=== PATIENT | male | born 1960 | race Caucasian/White ===

== ENCOUNTER 2024-03-05 08:23 | Outpatient (CLI) | payer OTHER, SELFPAY | END 2024-03-05 08:24 | disposition home or self-care (01) | PROVIDERS: PCP Family Medicine; Visit Provider Registered Nurse | DX: Z00.00 Encounter for general adult medical examination without abnormal findings (principal); E78.5 Hyperlipidemia, unspecified; I10 Essential (primary) hypertension; E11.9 Type 2 diabetes mellitus without complications; Z12.5 Encounter for screening for malignant neoplasm of prostate | CPT/HCPCS: 80053; 80061; G0103 ==

== ENCOUNTER 2024-04-28 15:36 | Outpatient (CLI) | payer OTHER, SELFPAY | END 2024-04-28 15:37 | disposition home or self-care (01) | LOC: NFLDREF 04-29 10:52 | PROVIDERS: PCP Registered Nurse; Referring Provider Registered Nurse; Visit Provider Registered Nurse | DX: M25.551 Pain in right hip (principal) | CPT/HCPCS: 86140 ==

== ENCOUNTER 2024-05-18 18:43 | Outpatient (CLI) | payer OTHER, SELFPAY ==
--- NOTE | 2024-05-18 19:00 | CRLHL7_ITS ---
For Patients: As a result of the Century Cures Act, medical imaging exams and procedure reports are released immediately into your electronic medical record. You may view this report before your referring provider. If you have questions, please contact your health care provider. Indication: Radiculopathy with low back pain. Technique: T2, T1, and STIR sagittal as well as T1 and T2 axial sequences were obtained. No IV contrast. Comparison: None available. Findings: Five lumbar morphology vertebrae are assumed, with partial lumbarization of S1 and a relatively well-formed S1-S2 disc space. There is left convex curvature in the lower lumbar region. Alignment in the lateral projection is near anatomic. No evidence for recent fracture, worrisome bone lesion or pars defect. There is mild loss of anterior vertebral body height at the L1 level. No high grade central canal stenosis. The conus and cauda equina are unremarkable, with the tip of the cord at the L1 level. No paraspinal pathology is identified. T12-L1: Mild disc degeneration. The foramina are patent. L1-2: Mild facet degenerative changes. The disc is negative. The foramina are patent. L2-3: Mild disc and moderate facet degenerative changes with low-grade foraminal narrowing. L3-4: Moderately severe facet osteoarthritis. Moderate disc degeneration. Moderate narrowing of the neural foramina. L4-5: Moderate-sized foraminal/extraforaminal disc extrusion on the right, impinging on the right L4 root as it exits the foramen. Moderate disc degeneration. Severe left and moderate right facet osteoarthritis. L5-S1: Moderately severe facet osteoarthritis. Mild disc degeneration. Moderate foraminal narrowing. Impression: 1. Transitional lumbosacral level. Prior to any attempted intervention, careful plain film correlation would be essential to remove any level ambiguity. 2. At L4-5 there is a moderate-sized foraminal/extraforaminal disc herniation on the right, impinging on the right L4 root. 3. Prominent facet osteoarthritis at lower lumbar levels. 4. No central canal stenosis. No evidence for fracture. Dictated by Ramsey Calle MD @ 05/19/2024 4:41:56 PM (Electronically Signed)
== END 2024-05-18 18:44 | disposition home or self-care (01) ==
LOC: MRI 18:44
PROVIDERS: PCP Registered Nurse; Visit Provider Family Medicine
DX: M54.16 Radiculopathy, lumbar region (principal); M54.50 Low back pain, unspecified; M51.26 Other intervertebral disc displacement, lumbar region; M47.896 Other spondylosis, lumbar region
CPT/HCPCS: 72148

== ENCOUNTER 2024-06-08 10:58 | Outpatient (CLI) | payer OTHER, SELFPAY | END 2024-06-08 10:59 | disposition home or self-care (01) | LOC: INJ CL 10:59 | PROVIDERS: PCP Registered Nurse; Visit Provider Family Medicine | DX: M54.16 Radiculopathy, lumbar region (principal); M51.26 Other intervertebral disc displacement, lumbar region | CPT/HCPCS: 64483; J1100; Q9966 ==

== ENCOUNTER 2024-07-05 16:10 | Outpatient (CLI) | payer OTHER, SELFPAY ==
--- OUTSIDE RECORDS SUMMARY | 2024-07-05 16:20 | XMS_ITS | Clinical Summary ---
Author Organization [facility] Address [address] [place] [address] Care Team Providers Care Field Contact Technician Name Role Phone Sterling Valdez MD Primary Care Provider [phone] Source Comments You are receiving this document as you are listed as the primary care provider,follow-up provider, or the patient has been referred to you for consultation.This is in compliance with the Medicare and[facility] EHR Incentive Program,which states Providers who transition their patient to another setting of careor provider of care or refers their patient to another provider of care shouldprovide summary care record for each transition of care or referral. [employer] Allergies No known active allergies Medications Medication Sig Dispensed Refills Start Date End Date Status Aspirin Buf,OkEnvo-KhQktp-DvR , 81 MG TABS Take 1 Tablet by mouth. Active amLODIPine (NORVASC) 10 MG tablet Take 1 tablet by mouth once daily 90 Tablet 3 03/06/2023 Active metFORMIN XR (GLUCOPHAGE XR) 500 MG 24 hour release tablet TAKE 1 TABLET BY MOUTH TWICE DAILY WITH MEALS 180 Tablet 3 03/06/2023 Active atorvastatin (LIPITOR) 40 MG tablet Take 1 tablet by mouth once daily 90 Tablet 3 03/06/2023 Active Active Problems Problem Noted Date Diagnosed Date Adenomatous polyp of colon 01/09/2021 Essential hypertension 11/08/2020 Type 2 diabetes mellitus wit hout complication, without long-term current use of insulin 11/08/2020 Hyperlipidemia 11/08/2020 Sleep apnea 11/08/2020 Immunizations Name Administration Dates Next Due Flu Vac (3+ yrs) 04/28/2012 Flu Vac Preserv Free (3+yrs) 06/04/2013 Flublok (RIV4) 04/27/2020,06/29/2019,06/02/2018 Influenza (Flucelvax), Prese rv Free QIV 05/01/2023 Influenza (Fluzone 0.25, 6-35 mos) 05/06/2014 Influenza IIV4 (Quadrivalent ) 0.5mL (68966) 05/31/2022,05/21/2021,06/18/2017, 016,05/09/2014 Moderna Monovalent 12+ 12/29/2021,10/06/2020, Moderna Monovalent Booster 12+ 06/27/2021 PCV20 (Dpmxdej10) 01/17/2022 PPSV23 (Pneumovax) 06/18/2017 Pfizer Bivalent 12+ 05/31/2022 Td (7+ yrs) 01/09/2011 Tdap 05/31/2022, 2,01/24/2012, 011 Zoster RZV (Shingrix) 01/17/2022,11/08/2020 Social History Tobacco Use Types Packs/Day Years Used Date Smoking Tobacco: Every Day Cigarettes 0.5 44.9 Started: 1979 Smokeless Tobacco: Never Tobacco Cessation:Ready to Q uit: Not Asked; Counseling Given: Not Answered Alcohol Use Standard Drinks/Week Comments Not Currently 0 (1 standard drink = 0.6 oz pur e alcohol) PHQ-2 Answer Date Recorded PHQ-2 Score 0 01/17/2022 Sex and Gender Information Value Date Recorded Sex Assigned at Not on file Gender Identity Not on file Sexual Orientation Not on file Last Filed Vital Signs Vital Sign Reading Time Taken Comments Blood Pressure 135/78 01/17/2022 4:14 PM CDT Pulse 69 05/15/2022 1:51 PM CDT Temperature 36.7 C (98 F) 01/17/2022 4:14 PM CDT Respiratory Rate 16 01/17/2022 4:14 PM CDT Oxygen Saturation 96% 01/17/2022 4:14 PM CDT Inhaled Oxygen Concentration - - Weight 102.1 kg (225 lb) 05/15/2022 1:09 PM CDT Height 177.8 cm (5' 10) 05/15/2022 1:09 PM CDT Body Mass Index 32.28 05/15/2022 1:09 PM CDT Plan of Treatment Health Maintenance Due Date Last Done Comments Adult Preventive Visit 01/17/2023 01/17/2022, 2020 Diabetes: Foot Exam 01/17/2023 01/17/2022 Diabetes: Eye Exam 02/21/2023 02/21/2022, 02/21/2022 Diabetes: HGBA1C 09/13/2023 03/13/2023, 04/2022, 11/10/2020, Additional history exists Colonoscopy 01/06/2024 01/05/2021 Diabetes: Creatinine 03/13/2024 03/13/2023, 01/17/2022, 11/10/2020 Diabetes: Urine Microalbumin 03/13/2024 03/13/2023, 01/17/2022 PSA Screening Discussion 03/13/2024 03/13/2023, 0409/2020 COVID-19 Vaccine ( season) 2024 05/31/2022, 12/29/2021, 06/27/2021, Additional history exists Influenza (#1) 2024 05/01/2023, 05/12, 05/21/2021, Additional history exists Diabetes: Lipid Panel 03/13/2028 03/13/2023, 021 DTaP/Tdap/Td (6 - Tdap) 05/31/2032 05/31/20, 04/28/2012, 01/24/2012, Additional history exists RSV (1 - 1-dose 75+ series) 2035 HIV Screening (Preventive Services) Completed 01/17/2022 Hep C Screening (Preventive Services) Completed 01/17/2022 Pneumococcal Completed 01/17/2022, 06/18/2017 Zoster/Shingles Completed 01/17/2022, 11/08/2020 Cholesterol Discontinued 03/13/2023, 11/10/2020 HepA Aged Out No longer eligi ble based on patient's age to complete this topic HepB Aged Out No longer eligi ble based on patient's age to complete this topic Hib Aged Out No longer eligi ble based on patient's age to complete this topic IPV (Polio) Aged Out No longer eligi ble based on patient's age to complete this topic Infant RSV Aged Out No longer eligi ble based on patient's age to complete this topic MCV4 Aged Out No longer eligi ble based on patient's age to complete this topic Procedures Procedure Name Priority Date/Time Associated Diagnosis Comments PROSTATIC SPECIFIC ANTIGEN(SCREEN) Routine 03/13/2023 7:22 AM CDT Screening for prostate cancer COMPREHENSIVE METABOLIC PANEL Routine 03/13/2023 7:22 AM CDT Essential hypertension (HRC) Hyperlipidemia, unspecified hyperlipidemia type (HRC) Type 2 diabetes mellitus without complication, without long-term current use of insulin (HRC) ALBUMIN/CREAT RATIO Routine 03/13/2023 7 :22 AM CDT Type 2 diabetes mellitus without complication, without long-term current use of insulin (HRC) HGB A1C Routine 03/13/2023 7:22 AM CDT Type 2 diabetes mellitus without complication, without long-term current use of insulin (HRC) LIPID PANEL & DIRECT LDL (IF NEEDED) Routine 03/13/2023 7:22 AM CDT Hyperlipidemia, unspecified hyperlipidemia type (HRC) HIV 1/2 AG/AB 4TH GEN Routine 01/17/2022 5:24 PM CDT Screening for HIV (human immunodeficiency virus) HEPATITIS C ANTIBODY, WITH REFLEX Routine 01/17/2022 5:24 PM CDT Need for hepatitis C screening test COLONOSCOPY Routine 01/05/2021 8:21 AM CDT Screen for colon cancer from Last 3 Months or Most Recently Relevant to Health Maintenance Results * (ABNORMAL) Lipid Panel and Direct LDL(If Needed) (03/13/2023 7:22 AM CDT) Pathologist [facility] Cholesterol 143 0 - 199 mg/dL 03/13/2023 2:11 PM CDT [facility] Triglyceride 101 <=149 mg/dL 03/13/2023 2:11 PM CDT [facility] HDL Cholesterol 32(L) >=40 mg/dL 03/13/2023 2:11 PM CDT [facility] LDL, Calculated 91 <130 mg/dL 03/13/2023 2:11 PM CDT [facility] Non HDL Chol, Calculated 111 <=159 mg/dL 03/13/2023 2:11 PM CDT [facility] Cholesterol/HDL Ratio 4.5 03/13/2023 2:11 PM T [facility] Hours Fasting 12 03/13/2023 2:11 PM CDT [facility] Blood Venipuncture / Unknown 03/13/2023 7:22 AM CDT 03/13/2023 7:22 AM CDT Kristie Moreno PA-C LAB_1 [facility] [address] [address] [phone] [facility] [address] [place] [phone], [facility] [phone] * (ABNORMAL) Comp Metabolic Panel (03/13/2023 7:22 AM CDT) Sodium 142 136 - 145 mmol/L 03/13/2023 2:11 PM CDT [facility] Potassium 4.8 3.5 - 5.1 mmol/L 03/13/2023 2:11 PM T [facility] Chloride 107 98 - 109 mmol/L 03/13/2023 2:11 PM CDT [facility] CO2 28 20 - 29 mmol/L 03/13/2023 2:11 PM T [facility] Anion Gap 7 7 - 16 mmol/L 03/13/2023 2:11 PM T [facility] Calcium 9.5 8.4 - 10.4 mg/dL 03/13/2023 2:11 PM T [facility] BUN 15 7 - 26 mg/dL 03/13/2023 2:11 PM T [facility] Creatinine 0.91 0.73 - 1.18 mg/dL 03/13/2023 2:11 PM T [facility] Alkaline Phosphatase 80 40 - 150 U/L 03/13/2023 2:11 PM T [facility] AST (SGOT) 17 10 - 40 U/L 03/13/2023 2:11 PM CDT [facility] ALT (SGPT) 17 <=55 U/L 03/13/2023 2:11 PM T [facility] Bilirubin, Total 0.6 0.2 - 1.2 mg/dL 03/13/2023 2:11 PM T [facility] Protein, Total 7.2 6.4 - 8.3 g/dL 03/13/2023 2:11 PM T [facility] Albumin 4.0 3.5 - 5.0 g/dL 03/13/2023 2:11 PM T [facility] Glucose 101(H) 70 - 100 mg/dL 03/13/2023 2:11 PM T [facility] Comment:The given reference range is for the fasting state. Non-fasting reference range for glucose is 70 - 180 mg/dL. Hours Fasting 12 03/13/2023 2:11 PM T [facility] GFR, Estimated >60 >60 mL/min/1. 73m2 03/13/2023 2:11 PM [facility] Blood Venipuncture / Unknown 03/13/2023 7:22 AM CDT 03/13/2023 7:22 AM CDT Kristie Moreno PA-C LAB_1 [facility] [address] [address], [facility] [phone] [facility] [address] [place] [phone], [facility] [phone] * Prostatic Specific Antigen (Screen) (03/13/2023 7:22 AM CDT) Prostatic Specific Antigen 2.7 0.0 - 4.0 ng/mL 03/13/2023 2:28 PM CDT [facility] Blood Venipuncture / Unknown 03/13/2023 7:22 AM CDT 03/13/2023 7:22 AM CDT Narrative [facility] - 03/13/2023 2:28 PM CDT The Salazar PSA Chemiluminescent immunoassay is used. Results obtained with different test methods or kits cannot be used interchangeably. Kristie Moreno PA-C LAB_1 Performing Organization Address [facility] de Phone Number [facility] [address] [phone] * Albumin/Creatinine Ratio,Random Urine (03/13/2023 7:22 AM CDT) Albumin/Creati nine Ratio, Urine, Random 10 <30 mg/g 03/13/2023 2:31 PM CDT [facility] Albumin, Urine, Random 2.1 mg/L 03/13/2023 2:31 PM CDT [facility] Creatinine, Urine, Random 21 >20 mg/dL mg/dL 03/13/2023 2:31 PM CDT [facility] Urine Non-blood Collection / Unknown 03/13/2023 7:22 AM CDT 03/13/2023 7:22 AM CDT Kristie Moreno PA-C LAB_1 Performing Organization Address [facility] de Phone Number [facility] [address] [place] [address] * (ABNORMAL) Hgb A1C (03/13/2023 7:22 AM CDT) Hemoglobin A1C 5.7(H) <=5.6 % 03/13/2023 2:37 PM CDT [facility] Estimated Average Glucose (Calc) 117 < 117 mg/dL 03/13/2023 2:37 PM T [facility] Comment:Estimated average gl ucose (eAG) converts A1c into glucose units (mg/dL) and estimates average glucose over the past approximately 3 months. The eAG reference interval (<117 mg/dL) corresponds to an A1c of <5.7%. Blood Venipuncture / Unknown 03/13/2023 7:22 AM CDT 03/13/2023 7:22 AM CDT Narrative [facility] - 03/13/2023 2:37 PM CDT For patients not previously diagnosed with diabetes: 5.7-6.4%: Increased risk for diabetes 6.5% and greater: Diagnostic for diabetes For patients diagnosed with diabetes: <8.0%: Goal of therapy for ages 18-75 Clinicians may recommend a higher or lower goal for specific individuals. Kristie Moreno PA-C LAB_1 Performing Organization Address [facility] Co de Phone Number [facility] [address] [place] [address], [facility] [phone] * HIV 1/2 Ag/Ab 4th Generation (01/17/2022 5:24 PM CDT) HIV 1/2 Antigen/Anti body (4th generation) Negative (Non Reactive) Negative (Non Reactive) 01/17/2022 10:04 PM CDT [facility] Comment:HIV-1 p24 Antigen an d HIV-1/HIV-2 Antibody not detected Blood Venipuncture / Unknown 01/17/2022 5:24 PM CDT 01/17/2022 5:24 PM CDT Jose Miguel Becker MD LAB_1 Performing Organization Address [facility] Co de Phone Number [facility] [address] [place] [address], [facility] [phone] * Hepatitis C Antibody, with Reflex (01/17/2022 5:24 PM CDT) Hepatitis C Antibody Negative (Non Reactive) Negative (Non Reactive) 01/17/2022 10:04 PM CDT [facility] Comment:Antibodies to HCV no t detected. Does not exclude the possiblity of exposure to HCV. Blood Venipuncture / Unknown 01/17/2022 5:24 PM CDT 01/17/2022 5:24 PM CDT Jose Miguel Becker MD LAB_1 [facility] [address] [phone] * COLONOSCOPY [[id number]] (01/05/2021 8:21 AM CDT) 01/05/2021 8:21 AM CDT Narrative [facility] - 01/05/2021 8:47 AM CDT Instrument Name: [id number] Indications: High risk colon cancer surveillance: Personal history of colonic polyps Providers: Ayanna Franks MD, Kathryn Gonzalez LPN, Hannah Antunez RN Patient Profile: 60 y/o M here for 5 year follow up, had a couple of polyps last time. No FH of colon cancer. Referring MD: Sterling Valdez Medicines: Midazolam 3 mg IV, Fentanyl 100 micrograms IV Complications: No immediate complications. Procedure: Pre-Anesthesia Assessment: - Prior to the procedure, a History and Physical was performed, and patient medications and allergies were reviewed. The patient is competent. The risks and benefits of the procedure and the sedation options and risks were discussed with the patient. All questions were answered and informed consent was obtained. Patient identification and proposed procedure were verified by the physician in the procedure room. Mental Status Examination: alert and oriented. Airway Examination: normal oropharyngeal airway and neck mobility. Respiratory Examination: clear to auscultation. CV Examination: normal. Prophylactic Antibiotics: The patient does not require prophylactic antibiotics. Prior Anticoagulants: The patient has taken no previous anticoagulant or antiplatelet agents. ASA Grade Assessment: II - A patient with mild systemic disease. After reviewing the risks and benefits, the patient was deemed in satisfactory condition to undergo the procedure. The anesthesia plan was to use moderate sedation / analgesia (conscious sedation). Immediately prior to administration of medications, the patient was re-assessed for adequacy to receive sedatives. The heart rate, respiratory rate, oxygen saturations, blood pressure, adequacy of pulmonary ventilation, and response to care were monitored throughout the procedure. The physical status of the patient was re-assessed after the procedure. - With any procedure there is a small but inherent risk of acquiring infection including, but not limited to, the novel coronavirus (COVID-19). After I obtained informed consent, the scope was passed under direct vision. Prior to sedation, patient identity and procedure was reverified. Throughout the procedure, the patient's blood pressure, pulse, and oxygen saturations were monitored continuously. The [id number] was introduced through the anus and advanced to the terminal ileum, with identification of the appendiceal orifice and IC valve. The colonoscopy was performed without difficulty. The patient tolerated the procedure well. The quality of the bowel preparation was excellent. Findings: Hemorrhoids were found on perianal exam. Multiple small and large-mouthed diverticula were found in the sigmoid colon. A 5 mm polyp was found in the descending colon. The polyp was sessile. The polyp was removed with a cold snare. Resection and retrieval were complete. Non-bleeding internal hemorrhoids were found during retroflexion. The hemorrhoids were moderate. The terminal ileum appeared normal. Moderate Sedation: Moderate (conscious) sedation was personally administered by the endoscopist. The following parameters were monitored: oxygen saturation, heart rate, blood pressure, and response to care. Total physician intraservice time was 13 minutes. Impression: - Hemorrhoids found on perianal exam. - Diverticulosis in the sigmoid colon. - One 5 mm polyp in the descending colon, removed with a cold snare. Resected and retrieved. - Non-bleeding internal hemorrhoids. - The examined portion of the ileum was normal. Recommendation: - Repeat colonoscopy in 7 years for surveillance. Procedure Code(s): --- Professional --- 45081, PT, Colonoscopy, flexible; with removal of tumor(s), polyp(s), or other lesion(s) by snare technique [id number], PT, Moderate sedation services provided by the same physician or other qualified health menagerie caretaker performing a gastrointestinal endoscopic service that sedation supports, requiring the presence of an independent trained observer to assist in the monitoring of the patient's level of consciousness and physiological status; initial 15 minutes of intra-service time; patient age 5 years or older (additional time may be reported with 43066, as appropriate) Diagnosis Code(s): --- Professional --- Z12.11, Encounter for screening for malignant neoplasm of colon Z86.010, Personal history of colonic polyps K64.8, Other hemorrhoids K63.5, Polyp of colon K57.30, Diverticulosis of large intestine without perforation or abscess without bleeding CPT copyright 2019 [employer]. All rights reserved. The codes documented in this report are preliminary and upon hotel maintenance technician review may be revised to meet current compliance requirements. Attending Participation: MD Ayanna Peterson MD 01/05/2021 8:46:51 AM This report has been signed electronically. Number of Addenda: 0 Note Initiated On: 01/05/2021 8:21 AM Procedure Note Ayanna Franks MD - 01/05/2021 Instrument Name: [id number] Indications: High risk colon cancer surveillance: Personal history of colonic polyps Providers: Ayanna Franks MD, Kathryn Gonzalez LPN, Hannah Antunez RN Patient Profile: 60 y/o M here for 5 year follow up, had a couple of polyps last time. No FH of colon cancer. Referring MD: Sterling Valdez Medicines: Midazolam 3 mg IV, Fentanyl 100 micrograms IV Complications: No immediate complications. Procedure: Pre-Anesthesia Assessment: - Prior to the procedure, a History and Physical was performed, and patient medications and allergies were reviewed. The patient is competent. The risks and benefits of the procedure and the sedation options and risks were discussed with the patient. All questions were answered and informed consent was obtained. Patient identification and proposed procedure were verified by the physician in the procedure room. Mental Status Examination: alert and oriented. Airway Examination: normal oropharyngeal airway and neck mobility. Respiratory Examination: clear to auscultation. CV Examination: normal. Prophylactic Antibiotics: The patient does not require prophylactic antibiotics. Prior Anticoagulants: The patient has taken no previous anticoagulant or antiplatelet agents. ASA Grade Assessment: II - A patient with mild systemic disease. After reviewing the risks and benefits, the patient was deemed in satisfactory condition to undergo the procedure. The anesthesia plan was to use moderate sedation / analgesia (conscious sedation). Immediately prior to administration of medications, the patient was re-assessed for adequacy to receive sedatives. The heart rate, respiratory rate, oxygen saturations, blood pressure, adequacy of pulmonary ventilation, and response to care were monitored throughout the procedure. The physical status of the patient was re-assessed after the procedure. - With any procedure there is a small but inherent risk of acquiring infection including, but not limited to, the novel coronavirus (COVID-19). After I obtained informed consent, the scope was passed under direct vision. Prior to sedation, patient identity and procedure was reverified. Throughout the procedure, the patient's blood pressure, pulse, and oxygen saturations were monitored continuously. The [id number] was introduced through the anus and advanced to the terminal ileum, with identification of the appendiceal orifice and IC valve. The colonoscopy was performed without difficulty. The patient tolerated the procedure well. The quality of the bowel preparation was excellent. Findings: Hemorrhoids were found on perianal exam. Multiple small and large-mouthed diverticula were found in the sigmoid colon. A 5 mm polyp was found in the descending colon. The polyp was sessile. The polyp was removed with a cold snare. Resection and retrieval were complete. Non-bleeding internal hemorrhoids were found during retroflexion. The hemorrhoids were moderate. The terminal ileum appeared normal. Moderate Sedation: Moderate (conscious) sedation was personally administered by the endoscopist. The following parameters were monitored: oxygen saturation, heart rate, blood pressure, and response to care. Total physician intraservice time was 13 minutes. Impression: - Hemorrhoids found on perianal exam. - Diverticulosis in the sigmoid colon. - One 5 mm polyp in the descending colon, removed with a cold snare. Resected and retrieved. - Non-bleeding internal hemorrhoids. - The examined portion of the ileum was normal. Recommendation: - Repeat colonoscopy in 7 years for surveillance. Procedure Code(s): --- Professional --- 50088, PT, Colonoscopy, flexible; with removal of tumor(s), polyp(s), or other lesion(s) by snare technique [id number], PT, Moderate sedation services provided by the same physician or other qualified health menagerie caretaker performing a gastrointestinal endoscopic service that sedation supports, requiring the presence of an independent trained observer to assist in the monitoring of the patient's level of consciousness and physiological status; initial 15 minutes of intra-service time; patient age 5 years or older (additional time may be reported with 43316, as appropriate) Diagnosis Code(s): --- Professional --- Z12.11, Encounter for screening for malignant neoplasm of colon Z86.010, Personal history of colonic polyps K64.8, Other hemorrhoids K63.5, Polyp of colon K57.30, Diverticulosis of large intestine without perforation or abscess without bleeding CPT copyright 2019 [employer]. All rights reserved. The codes documented in this report are preliminary and upon hotel maintenance technician review may be revised to meet current compliance requirements. Attending Participation: MD Ayanna Peterson MD 01/05/2021 8:46:51 AM This report has been signed electronically. Number of Addenda: 0 Note Initiated On: 01/05/2021 8:21 AM Ayanna Franks MD DIGESTIVE CARE Performing Organization Address City/State/[facility] Co de Phone Number [facility] [place], [place] from Last 3 Months or Most Recently Relevant to Health Maintenance Care Teams Field Contact Technician Relationship Specialty Start Date End Date Sterling Valdez MD [address] [facility] [address] [place] [address] PCP - General Family Practice 11/09/20
--- OUTSIDE RECORDS SUMMARY | 2024-07-05 16:20 | XMS_ITS | Clinical Summary ---
Author Organization [facility] Address [place], [place] [address] Care Team Providers Care Undercollar Baster Name Role Phone Pcp, No Primary Care Provider Unavailabl e Allergies Active Allergy Reactions Criticality Noted Date Comments Heparin Analogues 03/13/2011 Father of complications Medications Medication Sig Dispensed Refills Start Date End Date Status acetaminophen SR (TYLENOL ARTHRITIS PAIN) 650 mg Extended-Release tabletIndications: Tendinitis of right shoulder Take 1 tablet by mouth every 8 hours if needed. Max acetaminophen dose: 4000mg in 24 hrs. 60 tablet 1 12/02/2017 Active atorvastatin (LIPITOR) 40 mg tablet Take 40 mg by mouth once daily. 04/08/2018 Active amLODIPine (NORVASC) 10 mg tablet Take 10 mg by mouth once daily. 07/13/2018 Active chlorthalidone (HYGROTON) 25 mg tablet Take 12.5 mg by mouth once daily. 06/02/2018 Active aspirin (ECOTRIN) 81 mg enteric coated tablet Take 1 tablet by mouth once daily with a meal. 0 08/24/2018 Active Active Problems Problem Noted Date Diagnosed Date Hypertension 03/13/2011 Encounters Date Type Department Care Team Description 06/08/2024 11:40 AM CDT Office Visit [facility] [address] [place] [id number] Alex Ash MD Procedure (Right L4-5 TFESI) 06/08/2024 Travel 06/04/2024 Telephone [facility] [address] [place] [address] Pcp, No Questions (Paperwork ) 05/31/2024 Telephone [facility] [address] [place], [place] [phone] Alex Ash MD Appointment (For [facility] ) 05/31/2024 Transcribe Orders [facility] [address] [place] [address] Alex Ash MD from Last 3 Months Immunizations Name Administration Dates Next Due Influenza, IIV4 06/18/2017,05/15/2016 Td (Age >=7 Years) 01/09/2011 Tdap 04/28/2012,01/24/2012,10/04/2010 Social History Tobacco Use Types Packs/Day Years Used Date Smoking Tobacco: Every Day Cigarettes Smokeless Tobacco: Never Tobacco Cessation:Ready to Q uit: Not Asked; Counseling Given: Not Answered Alcohol Use Standard Drinks/Week Comments Yes 0 (1 standard drink = 0.6 oz pur e alcohol) Occassionally PHQ-2 Answer Date Recorded PHQ-2 Score 0 10/12/2018 Sex and Gender Information Value Date Recorded Sex Assigned at Not on file Gender Identity Not on file Sexual Orientation Not on file Obstetrics History Last Filed Vital Signs Vital Sign Reading Time Taken Comments Blood Pressure 134/82 08/27/2022 1:00 PM LEAD DIE MOLDER Pulse 70 08/27/2022 1:00 PM LEAD DIE MOLDER Temperature 36.7 C (98.1 F) 08/27/2022 10:10 AM LEAD DIE MOLDER Respiratory Rate 20 08/27/2022 10:10 AM LEAD DIE MOLDER Oxygen Saturation 99% 08/27/2022 1:00 PM LEAD DIE MOLDER Inhaled Oxygen Concentration - - Weight 104.3 kg (230 lb) 08/27/2022 10:10 AM LEAD DIE MOLDER Height 177.8 cm (5' 10) 08/27/2022 10:10 AM LEAD DIE MOLDER Body Mass Index 33 08/27/2022 10:10 AM LEAD DIE MOLDER Plan of Treatment Upcoming Encounters Date Type Department Care Team (Latest Contact Info) Description 07/27/2024 7:15 AM LEAD DIE MOLDER Hospital Encounter [facility] [address] [place], [place] [id number] Kwaku Campoverde MD [facility] [address] [facility] [address] [place] [address] 07/27/2024 7:15 AM LEAD DIE MOLDER - 07/27/2024 9:35 AM LEAD DIE MOLDER Surgery [facility] [address] [place] [address] Kwaku Campoverde MD [address] [facility] [address] [place] [address] Decompression - Transfacet/Transfora wil L4 to: L5 Right Scheduled Procedures Name Priority Associated Diagnoses Date/Ti me DECOMPRESSION SPINE LEVEL 01 Tier 4 HNP w/ Radiculopathy, 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 07/27/2024 7:15 AM LEAD DIE MOLDER Health Maintenance Due Date Last Done Comments Pneumococcal series for age 6-64 (1 of 2 - PCV) 1966 HIV for age 15-65 1975 Hepatitis C screening for ag e 18-79 1978 Colonoscopy through age 75 2005 Lipids for age 45-75 2005 Zoster (shingles) series for age 50+ (1 of 2) 2010 Depression screening for age 12+ 11/03/2018 11/04/19 18, 11/03/2017 BMI (ht and wt on same day) for age 18+ 01/13/2019 01/13/2018, 11/03/2017, 01/06/2017 Tetanus booster 04/28/2022 04/28/2012, 01/09, 01/09/2011, Additional history exists COVID-19 vaccine series (2023- season) 2024 05/31/2022, 12/29/2021, 06/27/2021, Additional history exists Influenza for age 50-64 04/11/2024 06/18/2017, 05/15 Tdap Completed 04/28/2012, 01/09, 10/04/2010 Procedures Procedure Name Priority Date/Time Associated Diagnosis Comments AMB EPIDURAL STEROID INJECTION Routine 06/08/2024 12:00 AM CDT Lumbar radiculopathy from Last 3 Months Results * AMB EPIDURAL STEROID INJECTION (06/08/2024 12:00 AM CDT) Alex Ash MD NEUROLOGY ORD from Last 3 Months Care Teams Undercollar Baster Relationship Specialty Start Date End Date Pcp, No . PCP - General 01/23/06
--- OUTSIDE RECORDS SUMMARY | 2024-07-05 16:20 | XMS_ITS | Encounter Summary ---
Author Organization [facility] Address [address] [place] [address] Care Team Providers Care Quality Associate Name Role Phone Sterling Valdez MD Primary Care Provider [phone] Reason for Visit * Reason Comments Outside Records on File Encounter Details Date Type Department Care Team (Late st Contact Info) Description 03/01/[address] [address] Sterling Valdez MD [facility] [address] [place] [address] Outside Records on File Social History Tobacco Use Types Packs/Day Years Used Date Smoking Tobacco: Every Day Cigarettes 0.5 44.9 Started: 1979 Smokeless Tobacco: Never Alcohol Use Standard Drinks/Week Comments Not Currently 0 (1 standard drink = 0.6 oz pur e alcohol) PHQ-2 Answer Date Recorded PHQ-2 Score 0 01/17/2022 Sex and Gender Information Value Date Recorded Sex Assigned at Not on file Gender Identity Not on file Sexual Orientation Not on file documented as of this encounter Nursing Notes * Brenna English - 03/01/2024 9:28 AM CDT Patient will work with [facility] to request records. documented in this encounter Plan of Treatment Not on file documented as of this encounter Visit Diagnoses Not on filedocumented in this encounter Care Teams Quality Associate Relationship Specialty Start Date End Date Sterling Valdez MD [address] [place] [address] [place] [address] PCP - General Family Practice 11/09/20 documented as of this encounter
--- OUTSIDE RECORDS SUMMARY | 2024-07-05 16:20 | XMS_ITS | Continuity of Care Document ---
Author Organization [facility] Address [address] [place] [address] Phone Care Team Providers Care Rn Endoscopy Name Role Phone Gilles NUNEZ, PhD, Kwaku Unavailable Unavai lable Allergies, Adverse Reactions, Alerts Substance Reaction Status Criticality No Known Allergies Active No Inform ation Medications Medication Instructions Dosage Effective Dates (start - stop) Status Comments METFORMIN HCL (unknown strength) Not Available - Active ATORVASTATIN CALCIUM (unknown strength) Not Available - Active KAPSPARGO SPRINKLE (unknown strength) Not Available - Active AMLODIPINE BESYLATE (unknown strength) Not Available - Active Procedures Procedure Date Office Consultation, Moderate-High Advance Directives Directive Yes / No Effective Date File Name No Information Encounters Encounter Description Practice Location Reason(s) For Visit Diagnoses Date Provider Providers Copied on Encounter [facility], [address], [place], [place], [id number], [place] tel:[phone] [facility] No Information [address] [facility], [address] [facility] [address], [place], [address], [place]. [phone] [facility], [address], [place], [place], [id number], [place] tel:[phone] [facility] No Information [address] [facility], [address], [place], [place], [id number] , [place]. [phone] Office Consultation, Moderate-High [facility], [address], [place], [place], [id number], [place] tel:[phone] [facility] - [facility] Other intervertebral disc displacement, lumbar regionRadiculop athy, lumbar region 4 Gilles Ames. [facility], [address], [place], [address], [place]. tel:[phone] Referring Provider: Ramsey Pugh, [facility] [address], [address]. tel:[phone] Family History Family Member Type Diagnosis Age At Onset Father Problem (finding) Cardiovascular disease Sister Problem (finding) Diabetes mellitus Brother Problem (finding) Cardiovascular disease Mother Problem (finding) Cardiovascular disease Payers Payer name Insurance type Covered green party ID Authoriza david(s) R CI [id number] Social History Type Description Quantity Date Captured Comments Alcohol Use Details Unknown Caffeine Use Details Unknown Tobacco Use Status Smoking Status No Information Sex Male Chief Complaint And Reason For Visit No Information Reason For Referral Reason For Referral No Information Plan Of Treatment Date Type Action Status Appointment Calvin Chicas BOOKED Appointment Calvin Chicas BOOKED History Of Present Illness Encounter Date Complaint History Of Prese nt Illness No Information Functional Status Date Functional Assessmen t No Information Instructions Date Instruction Additional Infor mation No Information Assessments Type Assessment Date No Information Patient Care Teams Name Effective Dates (start - stop) Status Members No Information
--- OUTSIDE RECORDS SUMMARY | 2024-07-05 16:20 | XMS_ITS | Encounter Summary ---
Author Organization [facility] Address [address] [place] [address] Care Team Providers Care Pcat Instructor Name Role Phone Sterling Valdez MD Primary Care Provider [phone] Encounter Details Date Type Department Care Team (Late st Contact Info) Description 03/01/2024 E-Visit [facility] [address] [address] Mychart, [place] [address] Social History Tobacco Use Types Packs/Day Years [...] on file documented as of this encounter Plan of Treatment Not on file documented as of this encounter Visit Diagnoses Not on filedocumented in this encounter Care Teams Pcat Instructor Relationship Specialty Start Date End Date Sterling Valdez MD [address] [facility] [address] [place] [address] PCP - General Family Practice 11/09/20 documented as of this encounter
== END 2024-07-05 16:11 | disposition home or self-care (01) ==
LOC: NFLDREF 16:18
PROVIDERS: PCP Registered Nurse; Visit Provider Registered Nurse
DX: I10 Essential (primary) hypertension (principal); E11.9 Type 2 diabetes mellitus without complications; Z01.818 Encounter for other preprocedural examination
CPT/HCPCS: 80048; 83036

== ENCOUNTER 2024-07-20 15:04 | Outpatient (CLI) | payer OTHER, SELFPAY ==
--- OUTSIDE RECORDS SUMMARY | 2024-07-20 15:06 | XMS_ITS | Continuity of Care Document ---
Author Organization [facility] Address [address] [place] [address] Phone Care Team Providers Care Aerial Advertiser Name Role Phone Gilles NUNEZ, PhD, Kwaku [...] BESYLATE (unknown strength) Not Available - Active Advance Directives Directive Yes / No Effective Date File Name No Information Encounters Encounter Description Practice Location Reason(s) For Visit Diagnoses Date Provider Providers Copied on Encounter [facility], [address], [place], [place], [id number], [place] tel:[phone] [facility] No Information 4 Gilles Ames. [facility], [address] [facility] [address], [place], [address], [place]. tel:[phone] [facility], [address], [place], [place], [address], [place] tel:[phone] [facility] No Information 4 Tuan Raygoza. [facility], [address], [place], [place], [address] , [place]. tel:[phone] [facility], [address], [place], [place], [address], [place] tel:[phone] [facility] Other intervertebral disc displacement, lumbar regionRadiculop athy, lumbar region 4 Gilles Ames. [facility], [address], [place], [address], [place]. tel:[phone] Referring Provider: Ramsey Pugh, [facility] And [address], [address]. tel:[phone] Family History Family Member Type Diagnosis Age At Onset Father Problem (finding) Cardiovascular disease Sister Problem (finding) Diabetes mellitus Brother Problem (finding) Cardiovascular disease Mother Problem (finding) Cardiovascular disease Payers Payer name Insurance type Covered alliance party ID Authoriza david(s) R CI [id number] Social History Type Description Quantity Date Captured Comments Sex Male Smoking Status No Information Chief Complaint And Reason For Visit No [...]
--- OUTSIDE RECORDS SUMMARY | 2024-07-20 15:06 | XMS_ITS | Clinical Summary ---
Author Organization [facility] Address [address] [place] [address] Care Team Providers Care Incubator Machine Operator Name Role Phone Sterling Valdez MD Primary Care Provider [phone] Source Comments You are receiving this document as you are listed as the primary care provider,follow-up provider, or the patient has been referred to you for consultation.This is in compliance with the Medicare andAcmc Healthcare Systemcaid EHR Incentive Program,which states Providers who transition their patient to another setting of careor provider of care or refers their patient to another provider of care shouldprovide summary care record for each transition of care or referral. [employer] Allergies No known active allergies Medications Medication Sig Dispensed Refills Start Date End Date Status Aspirin Buf,[id number] , 81 MG TABS Take 1 Tablet [...] mos) 05/06/2014 Influenza IIV4 (Quadrivalent ) 0.5mL (28610) 05/31/2022,05/21/2021,06/18/2017, 016,05/09/2014 Moderna Monovalent 12+ 12/29/2021,10/06/2020, Moderna Monovalent Booster 12+ 06/27/2021 PCV20 (Oyhoaoh30) 01/17/2022 PPSV23 (Pneumovax) 06/18/2017 Pfizer Bivalent 12+ [...] Direct LDL(If Needed) (03/13/2023 7:22 AM CDT) Cholesterol 143 0 - 199 mg/dL 03/13/2023 2:11 PM CDT [facility] Triglyceride 101 <=149 mg/dL 03/13/2023 2:11 PM CDT [facility] HDL Cholesterol 32(L) >=40 mg/dL 03/13/2023 2:11 PM CDT [facility] LDL, Calculated 91 <130 mg/dL 03/13/2023 2:11 PM CDT [facility] Non HDL Chol, Calculated 111 <=159 mg/dL 03/13/2023 2:11 PM T [facility] Cholesterol/HDL Ratio 4.5 03/13/2023 2:11 PM T [facility] Hours Fasting 12 03/13/2023 2:[address] [facility] Blood Venipuncture / Unknown 03/13/2023 7:22 AM CDT 03/13/2023 7:22 AM CDT Kristie Moreno PA-C LAB_1 [facility] [address] [address] [phone] [facility] [address] [place] [address], [facility] [phone] * (ABNORMAL) Comp Metabolic Panel (03/13/2023 7:22 AM CDT) Sodium 142 136 - 145 mmol/L 03/13/2023 2:11 PM T [facility] Potassium 4.8 3.5 - 5.1 mmol/L 03/13/2023 2:11 PM [facility] Chloride 107 98 - 109 mmol/L 03/13/2023 2:11 PM T [facility] CO2 28 20 - 29 mmol/L 03/13/2023 2:11 PM T [facility] Anion Gap 7 7 - 16 mmol/L 03/13/2023 2:11 PM T [facility] Calcium 9.5 8.4 - 10.4 mg/dL 03/13/2023 2:11 PM T [facility] BUN 15 7 - 26 mg/dL 03/13/2023 2:11 PM T [facility] Creatinine 0.91 0.73 - 1.18 mg/dL 03/13/2023 2:11 PM CDT [facility] Alkaline Phosphatase 80 40 - 150 U/L 03/13/2023 2:11 PM CDT [facility] AST (SGOT) 17 10 - 40 U/L 03/13/2023 2:11 PM CDT [facility] ALT (SGPT) 17 <=55 U/L 03/13/2023 2:11 PM CDT [facility] Bilirubin, Total 0.6 0.2 - 1.2 mg/dL 03/13/2023 2:11 PM CDT [facility] Protein, Total 7.2 6.4 - 8.3 g/dL 03/13/2023 2:11 PM CDT [facility] Albumin 4.0 3.5 - 5.0 g/dL 03/13/2023 2:11 PM T [facility] Glucose 101(H) 70 - 100 mg/dL 03/13/2023 2:11 PM T [facility] Comment:The given reference range is for the fasting state. Non-fasting reference range for glucose is 70 - 180 mg/dL. Hours Fasting 12 03/13/2023 2:[address] [facility] GFR, Estimated >60 >60 mL/min/1. 73m2 03/13/2023 2:11 PM T [facility] Blood Venipuncture / Unknown 03/13/2023 7:22 AM CDT 03/13/2023 7:22 AM CDT Kristie Moreno PA-C LAB_1 [facility] [address] [address], [facility] [phone] [facility] [address] [place] [address], [facility] [phone] * Prostatic Specific Antigen (Screen) (03/13/2023 7:22 AM CDT) Prostatic Specific Antigen 2.7 0.0 - 4.0 ng/mL 03/13/2023 2:28 PM T [facility] Blood Venipuncture / Unknown 03/13/2023 7:22 AM CDT 03/13/2023 7:22 AM CDT Narrative [facility] - 03/13/2023 2:28 PM CDT The Hypereight PSA Chemiluminescent immunoassay is used. Results obtained with different test methods or kits cannot be used interchangeably. Kristie Burkwayne TRONCOSO-C LAB_1 Performing Organization Address [facility] de Phone Number [facility] [address] [phone] * Albumin/Creatinine Ratio,Random Urine (03/13/2023 7:22 AM CDT) Albumin/Creati nine Ratio, Urine, Random 10 <30 mg/g 03/13/2023 2:31 PM CDT [facility] Albumin, Urine, Random 2.1 mg/L 03/13/2023 2:31 PM CDT [facility] Creatinine, Urine, Random 21 >20 mg/dL mg/dL 03/13/2023 2:31 PM CDT [facility] Urine Non-blood Collection / Unknown 03/13/2023 7:22 AM CDT 03/13/2023 7:22 AM CDT Kristie Tiffanie PA-C LAB_1 Performing Organization Address [facility] de Phone Number [facility] [address] [place] [address] * (ABNORMAL) Hgb A1C (03/13/2023 7:22 AM CDT) Hemoglobin A1C 5.7(H) <=5.6 % 03/13/2023 2:37 PM CDT [facility] Estimated Average Glucose (Calc) 117 < 117 mg/dL 03/13/2023 2:37 PM CDT [facility] Comment:Estimated average gl ucose (eAG) converts A1c into glucose units (mg/dL) and estimates average glucose over the past approximately 3 months. The eAG reference interval (<117 mg/dL) corresponds to an A1c of <5.7%. Blood Venipuncture / Unknown 03/13/2023 7:22 AM CDT 03/13/2023 7:22 AM CDT Narrative [facility] - 03/13/2023 2:37 PM CDT For patients not previously diagnosed with diabetes: 5.7-6.4%: Increased risk for diabetes 6.5% and greater: Diagnostic for diabetes For patients diagnosed with diabetes: <8.0%: Goal of therapy for ages 18-75 Clinicians may recommend a higher or lower goal for specific individuals. Kristie Moreno PA-C LAB_1 Performing Organization Address [facility] Co de Phone Number [facility] [address] [place] [address], [facility] [phone] * HIV 1/2 Ag/Ab 4th Generation (01/17/2022 5:24 PM CDT) Pathologist [facility] HIV 1/2 Antigen/Anti body (4th generation) Negative (Non Reactive) Negative (Non Reactive) 01/17/2022 10:04 PM CDT [facility] Comment:HIV-1 p24 Antigen an d HIV-1/HIV-2 Antibody not detected Blood Venipuncture / Unknown 01/17/2022 5:24 PM CDT 01/17/2022 5:24 PM CDT Jose Miguel Becker MD LAB_1 Performing Organization Address [facility] Co de Phone Number [facility] [address] [place] [address], [facility] [phone] * Hepatitis C Antibody, with Reflex (01/17/2022 5:24 PM CDT) Hepatitis C Antibody Negative (Non Reactive) Negative (Non Reactive) 01/17/2022 10:04 PM CDT [facility] Comment:Antibodies to HCV no t detected. Does not exclude the possiblity of exposure to HCV. Blood Venipuncture / Unknown 01/17/2022 5:24 PM CDT 01/17/2022 5:24 PM CDT Jose Miguel Becker MD LAB_1 Performing Organization Address City/State/[facility] Co de Phone Number [facility] [address] [place] [id number], [facility] [phone] * COLONOSCOPY [[id number]] (01/05/2021 8:21 AM CDT) 01/05/2021 8:21 AM [...] and oxygen saturations were monitored continuously. The [id number] was introduced through the anus and advanced [...] for surveillance. Procedure Code(s): --- Professional --- 37358, PT, Colonoscopy, flexible; with removal of tumor(s), polyp(s), or other lesion(s) by snare technique G0500, PT, Moderate sedation services provided by the same physician or other qualified health healthcare architect performing a gastrointestinal endoscopic service that sedation supports, requiring the presence of an independent trained observer to assist in the monitoring of the patient's level of consciousness and physiological status; initial 15 minutes of intra-service time; patient age 5 years or older (additional time may be reported with [address]45, as appropriate) Diagnosis Code(s): --- Professional --- Z12.11, Encounter for screening for malignant neoplasm of colon Z86.010, Personal history of colonic polyps K64.8, Other hemorrhoids K63.5, Polyp of colon K57.30, Diverticulosis of large intestine without perforation or abscess without bleeding CPT copyright 2019 [employer]. All rights reserved. The codes documented in this report are preliminary and upon bench machine operator review may be revised to meet current [...] and oxygen saturations were monitored continuously. The [id number] was introduced through the anus and advanced [...] for surveillance. Procedure Code(s): --- Professional --- [id number], PT, Colonoscopy, flexible; with removal of tumor(s), polyp(s), or other lesion(s) by snare technique G0500, PT, Moderate sedation services provided by the same physician or other qualified health healthcare architect performing a gastrointestinal endoscopic service that sedation supports, requiring the presence of an independent trained observer to assist in the monitoring of the patient's level of consciousness and physiological status; initial 15 minutes of intra-service time; patient age 5 years or older (additional time may be reported with [id number], as appropriate) Diagnosis Code(s): --- Professional --- Z12.11, Encounter for screening for malignant neoplasm of colon Z86.010, Personal history of colonic polyps K64.8, Other hemorrhoids K63.5, Polyp of colon K57.30, Diverticulosis of large intestine without perforation or abscess without bleeding CPT copyright 2019 [employer]. All rights reserved. The codes documented in this report are preliminary and upon bench machine operator review may be revised to meet current compliance requirements. Attending Participation: MD Ayanna Peterson MD 01/05/2021 8:46:51 AM This report has been signed electronically. Number of Addenda: 0 Note Initiated On: 01/05/2021 8:21 AM Ayanna Franks MD [facility] [place], [place] from Last 3 Months or Most Recently Relevant to Health Maintenance Care Teams Incubator Machine Operator Relationship Specialty Start Date End Date Sterling Valdez MD [address] [facility] [address] [place] [address] PCP - General Family Practice 11/09/20
--- OUTSIDE RECORDS SUMMARY | 2024-07-20 15:06 | XMS_ITS | Encounter Summary ---
Author Organization [facility] Address [address] [place] [address] Care Team Providers Care Switchgear Repairer Name Role Phone Sterling Valdez MD Primary Care Provider [phone] Reason for Visit * Reason Comments Outside Records on File Encounter Details Date Type Department Care Team (Late st Contact Info) Description 03/01/[address] [address] Sterling Valdez MD [facility] [address] [place] [address] Outside Records on File Social History Tobacco [...] 9:28 AM CDT Patient will work with [facility] to request records. documented in this encounter Plan of Treatment Not on file documented as of this encounter Visit Diagnoses Not on filedocumented in this encounter Care Teams Switchgear Repairer Relationship Specialty Start Date End Date Sterling Valdez MD [address] [place] [address] [place] [address] PCP - General Family Practice 11/09/20 documented as of this encounter
--- OUTSIDE RECORDS SUMMARY | 2024-07-20 15:06 | XMS_ITS | Clinical Summary ---
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 Max acetaminophen dose: 4000mg in 24 hrs. 60 tablet 1 8 Active atorvastatin (LIPITOR) 40 mg tablet Take 40 mg by mouth once daily. 8 Active amLODIPine (NORVASC) 10 mg tablet Take 10 mg by mouth once daily. 8 Active chlorthalidone (HYGROTON) 25 mg tablet Take 12.5 mg by mouth once daily. 8 Active aspirin (ECOTRIN) 81 mg enteric coated tablet Take 1 tablet by mouth once daily with a meal. 0 9 Active Active Problems Problem Noted Date Diagnosed Date Hypertension 03/13/2011 Encounters Date Type Department Care Team Description 06/08/2024 11:40 AM CDT Office Visit [facility] [address] [facility] [place] [id number] Alex Ash MD Procedure (Right L4-5 TFESI) 06/08/2024 Travel 06/04/2024 Telephone [facility] [address] [place] [address] Pcp, No Questions (Paperwork ) 05/31/2024 Telephone [facility] [address] [place] [address] Alex Ash MD Appointment (For [facility] ) 05/31/2024 Transcribe Orders [facility] [address] [place] [address] Alex Ash MD from Last 3 Months [...] Recorded Sex Assigned at Not on file Legal Sex Male 7:16 AM PORTFOLIO MANAGER Gender Identity Not on file Sexual Orientation Not on file Obstetrics History Last Filed Vital Signs Vital Sign Reading Time Taken Comments Blood Pressure 134/82 08/27/2022 1:00 PM PORTFOLIO MANAGER Pulse 70 08/27/2022 1:00 PM PORTFOLIO MANAGER Temperature 36.7 C (98.1 F) 08/27/2022 10:10 AM PORTFOLIO MANAGER Respiratory Rate 20 08/27/2022 10:10 AM PORTFOLIO MANAGER Oxygen Saturation 99% 08/27/2022 1:00 PM PORTFOLIO MANAGER Inhaled Oxygen Concentration - - Weight 104.3 kg (230 lb) 08/27/2022 10:10 AM PORTFOLIO MANAGER Height 177.8 cm (5' 10) 08/27/2022 10:10 AM PORTFOLIO MANAGER Body Mass Index 33 08/27/2022 10:10 AM PORTFOLIO MANAGER Plan of Treatment Upcoming Encounters Date Type Department Care Team (Latest Contact Info) Description 07/27/2024 7:15 AM PORTFOLIO MANAGER Hospital Encounter [facility] [address] [place], [place] [id number] Kwaku Campoverde MD [address] [facility] [place], [place] [address] 07/27/2024 7:15 AM PORTFOLIO MANAGER - 07/27/2024 9:35 AM PORTFOLIO MANAGER Surgery [facility] [address] [place] [address] Kwaku Campoverde MD [address] [facility] [address] [place] [address] Decompression - Transfacet/Transfora wil L4 to: L5 Right Scheduled Procedures Name Priority Associated Diagnoses Date/Ti me DECOMPRESSION SPINE LEVEL 01 Tier 4 HNP w/ Radiculopathy, 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 07/27/2024 7:15 AM PORTFOLIO MANAGER Health Maintenance Due Date Last Done Comments [...] 01/09/2011, Additional history exists COVID-19 vaccine series ( season) 2024 05/31/2022, 12/29/2021, 06/27/2021, Additional history exists Influenza for age 50-64 04/11/2024 06/18/2017, 05/15 RSV vaccine for adults or (1 - 1-dose 75+ series) 2035 Tdap Completed 04/28/2012, 01/09, 10/04/2010 Procedures Procedure Name Priority Date/Time Associated Diagnosis Comments AMB EPIDURAL STEROID INJECTION Routine 06/08/2024 12:00 AM CDT Lumbar radiculopathy from Last 3 Months Results * AMB EPIDURAL STEROID INJECTION (06/08/2024 12:00 AM CDT) us Alex Ash MD NEUROLOGY ORD Final Resu lt from Last 3 Months Insurance [facility] SH[facility] 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 PCP - General 01/23/06
--- NOTE | 2024-07-20 15:30 | CRLHL7_ITS ---
For Patients: As a result of the Century Cures Act, medical imaging exams and procedure reports are released immediately into your electronic medical record. You may view this report before your referring provider. If you have questions, please contact your health care provider. INDICATION: Lumbar radiculopathy. TECHNIQUE : Lumbar spine MRI without contrast. COMPARISON: Lumbar spine MRI from 05/18/2024. FINDINGS : Transitional segment with right transverse process/sacral ala integration. Designated S1 in this report. Normal lumbar lordotic curve. No recent compression fracture or marrow replacing process. Lower cord/conus signal is normal. The conus terminates at a normal location. No intradural lesion. No extraspinal soft tissue abnormalities. Discs/Endplates: At L1-2, L2-3 and L3-4, Findings at individual levels as follows: Imaged lower thoracic levels: No spinal canal or neural foraminal stenosis. T12-L1: No spinal canal or neural foraminal stenosis. L1-2: Mild disc bulge. No spinal canal or neural foraminal stenosis. L2-3: Mild disc bulge. Bilateral facet arthrosis. No spinal canal or neural foraminal stenosis. L3-4: Mild bilobed disc bulge. Bilateral facet arthrosis. Mild spinal canal stenosis and mild bilateral neural foraminal stenosis. L4-5: Trace retrolisthesis. Moderate disc bulge, asymmetric to the right. A superimposed 8 millimeter right intra foraminal disc extrusion with cranial migration which compresses the exiting right L4 nerve root. Overall advanced right neural foraminal stenosis. No left neural foraminal stenosis or spinal canal stenosis. L5-S1: Moderate disc bulge with underlying osteophytic ridging. Bilateral facet arthrosis. Mild right and ecst-ma-gjdikoxd left neural foraminal stenosis. No spinal canal stenosis. L1-2: No spinal canal or neural foraminal stenosis. Imaged SI joints: Within normal limits. Imaged sacrum: Within normal limits. IMPRESSION: 1. A transitional segment is again designated S1. 2. At L4-5, a right intraforaminal disc herniation compresses the exiting right L4 nerve root. Overall not significantly changed in size compared to the prior exam. 3. Scattered spondylosis elsewhere without high-grade spinal canal/neural foraminal stenosis or compression of neural structures. Dictated by Dax Underwood MD @ 07/22/2024 11:27:33 AM (Electronically Signed)
== END 2024-07-20 15:05 | disposition home or self-care (01) ==
LOC: MRI 15:05
PROVIDERS: PCP Registered Nurse; Visit Provider Orthopaedic Surgery Orthopaedic Surgery of the Spine
DX: M51.16 Intervertebral disc disorders with radiculopathy, lumbar region (principal); M51.26 Other intervertebral disc displacement, lumbar region; M47.896 Other spondylosis, lumbar region
CPT/HCPCS: 72148

== ENCOUNTER 2024-10-25 10:55 | Outpatient (CLI) | payer BC, SELFPAY | END 2024-10-25 10:56 | disposition home or self-care (01) | LOC: NFLDREF 10:56 | PROVIDERS: PCP Registered Nurse; Visit Provider Registered Nurse | DX: I10 Essential (primary) hypertension (principal); E78.5 Hyperlipidemia, unspecified | CPT/HCPCS: 80048 ==